=== PATIENT | male | born 1960 | race Caucasian/White ===

== ENCOUNTER → 2020-02-03 10:51 | Outpatient (BNVA) | payer SELFPAY | PROVIDERS: Family Provider Family Medicine; PCP Family Medicine; Referring Provider Family Medicine; Visit Provider Family Medicine | DX: R79.89 Other specified abnormal findings of blood chemistry (principal); M23.203 Derangement of unspecified medial meniscus due to old tear or injury, right knee | CPT/HCPCS: 80053; 84403; 85025 ==

== ENCOUNTER → 2022-04-30 11:26 | Outpatient (BNVA) | payer SELFPAY | PROVIDERS: Family Provider Family Medicine; PCP Family Medicine; Visit Provider Family Medicine | DX: I10 Essential (primary) hypertension (principal); R79.89 Other specified abnormal findings of blood chemistry; R07.9 Chest pain, unspecified | CPT/HCPCS: 80053; 84403 ==